=== PATIENT | female | born 1930 | race Caucasian/White ===

== ENCOUNTER 2021-09-22 12:09 | Outpatient (CLI) | payer OTHER | END 2021-09-22 20:59 | disposition home or self-care (01) | LOC: SRD 12:09 | PROVIDERS: ATTEND Internal Medicine Cardiovascular Disease | DX: R91.8 Other nonspecific abnormal finding of lung field (principal); J98.11 Atelectasis; J18.9 Pneumonia, unspecified organism; J98.8 Other specified respiratory disorders | CPT/HCPCS: 71046-TC ==